=== PATIENT | female | born 1985 | race Caucasian/White ===

== ENCOUNTER 2018-02-15 19:27 | Emergency (ER) | payer MEDICAID ==
[~2018-02-15] VITALS: Ht 154.9 cm; Wt 73.0 kg
[2018-02-15 19:30] VITALS: BP 128/99
== END 2018-02-15 23:09 | disposition left against medical advice (07) ==
LOC: ER 19:53
DX: Z53.21 Procedure and treatment not carried out due to patient leaving prior to being seen by health care provider (principal); F41.9 Anxiety disorder, unspecified